=== PATIENT | female | born 1990 | race Caucasian/White ===

== ENCOUNTER 2021-04-09 21:04 | Emergency (ER) | payer MEDICAID ==
[~2021-04-09] VITALS: Ht 157.5 cm; Wt 77.3 kg
[2021-04-09 23:12] VITALS: BP 128/76
== END 2021-04-09 23:22 | disposition home or self-care (01) ==
LOC: EMS 21:09
DX: S69.92XA Unspecified injury of left wrist, hand and finger(s), initial encounter (principal); F17.210 Nicotine dependence, cigarettes, uncomplicated; F12.90 Cannabis use, unspecified, uncomplicated; W23.0XXA Caught, crushed, jammed, or pinched between moving objects, initial encounter; Y93.61 Activity, american tackle football; Y92.89 Other specified places as the place of occurrence of the external cause; Y99.8 Other external cause status
CPT/HCPCS: 99283